=== PATIENT | male | born 1925 | race Caucasian/White ===

== ENCOUNTER 2016-06-21 08:17 | Emergency (ER) | payer MEDICARE, BC ==
[2016-06-21 08:27] VITALS: BP 148/87; PULSE 80; TEMP 97.7; BMI 22.9
--- NOTE | 2016-06-21 08:44 | EDPRACDOC ---
ED Hip Problem HPI - General Information Chief Complaint: Hip Pain Stated Complaint: HIP PAIN Time Seen by Provider: 06/21/16 08:18 Information Source: Patient Mode of Arrival: Ambulance Home Medications: Home Medications Prednisone [Sterapred DS 10 mg/12 day pack] 48 tab PO DIR #1 pack 06/21/16 - History of Present Illness Onset: 6 months HPI: PT WITH RIGHT HIP PAIN FOR 6 MONTHS, WORSE OVER THE PAST SEVERAL DAYS. REPORTS HAVING A NEGATIVE BONE SCAN (17),XRAYS ()THIS WEEK. UNABLE TO GET OFF TOILET THIS AM. HIP REPLACED AT [facility] ABOUT 13 YEARS AGO. PAIN IMPROVES THE DAY GOES ON. 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 - Treatment Prior to ED Arrival Reported Medications/Treatment TOP COATER Medications TOP COATER (Medication/ 600 mg Ibufropen, Celebrex Dose/Time) EMS Treatment BLS ED Past Medical History - History Reviewed Yes Nurses notes reviewed and agree except as marked - Patient Medical History Cardiac History: Reports: Hypertension Psychological History: Denies: Depression Systemic History: Denies: Cancer - Social Medical History Smoking Status: Never smoker EDM Review of Systems - Review of Systems ROS Negative Except as Marked: Yes All systems reviewed and were negative except as marked Constitutional: No Symptoms Reported Respiratory: No Symptoms Reported Cardiovascular: No Symptoms Reported Gastrointestinal: No Symptoms Reported Genitourinary: No Symptoms Reported Neurological: No Symptoms Reported Integumentary: No Symptoms Reported - Physical Exam Constitutional: Alert (Awake), No apparent distress Oriented to: Time, Person, Place Last recorded Vital Signs: Last Vital Signs Temp 97.7 F 06/21/16 08:23 Pulse 80 06/21/16 08:23 Resp 16 06/21/16 08:23 BP 148/87 06/21/16 08:23 Pulse Ox 99 06/21/16 08:23 Oxygen Pulse Oxygen Saturation 99 O2 Device Room Air Oxygen Flow Rate Fraction of Inspired Oxygen ( FIO2) - HEENT Head: Normal ( normocephalic) Eye Exam: Normal (PERRL, EOMI, Sclera white) Oropharynx: Normal (Pharynx:Moist without exudate,Gums-no swelling) Nose: No Symptoms Reported (septum midline) Neck: Normal (FROM, trachea at midline) - Respiratory/Cardiovascular Respiratory: Normal - CTA (BBS clear to auscultation without adventitious sounds ) Cardiovascular: Normal (RRR without murmur, gallop or rub) - GI Auscultation: Normal (NABS) Palpation: Normal (Soft,No rebound or guarding, non distended) Tenderness: Non tender Rodriguez's Sign: Negative - Musculoskeletal Back: Normal (Non-Tender) Extremities: Normal (Normal tone, Pulses 2+ No cyanosis or edema, FROM) - Integumentary Skin: Normal, Warm, Dry Lymphatics: Normal (no adenopathy) - Neurologic Memory Impaired: Normal Motor Function: Normal (Normal tone, Pulses 2+ No cyanosis or edema, FROM) Cranial Nerve: Normal (CN II-X11 intact sensation, strength 5/5) Cerebellar: Normal Mood Description: Normal Perception: Normal ED Hip Problem Physical Exam - Musculoskeletal Hip: Other (TTP OVER RIGHT POSTERIOR ILIAC.) Thigh: Normal Back: Normal Distal Function/Circulation: Normal Decision Time to Discharge: 08:58 - Departure Yes I personally saw and evaluated the patient. Disposition: Home Condition: Stable Final Diagnosis: Right hip pain Instructions: Hip Injury Education/Counseling Given To: Patient, Family Member Education/Counseling Given Regarding: Diagnosis, Treatment Referrals: None,No Provider [NonStaff] - Two Weeks Additional Instructions: TAKE YOUR PAIN MEDICATION WITH A SNACK BEFORE BED. PLACE A COMMODE SURROUND WITH HANDLES TO HELP GET UP. PUT A PAIN PILLS IN BATHROOM WITH SMALL SNACK IN CASE YOU HAVE PAIN IN THE MIDDLE OF THE NIGHT.
[2016-06-21] MEDS ORDERED: PREDNISONE 20 MG TAB PO ONE (08:50)
[2016-06-21] MEDS ORDERED: OXYCODONE HCL 5 MG TABLET PO ONE (08:50)
== END 2016-06-21 09:05 | disposition home or self-care (01) ==
LOC: ED 08:17
DX: M25.551 Pain in right hip (principal)
CPT/HCPCS: 99282; A9270; J3490